=== PATIENT | female | born 1995 | race Two or more races ===

== ENCOUNTER 2020-01-12 09:00 | Observation (INO) | payer MEDICAID, OTHER | END 2020-01-12 10:45 | disposition home or self-care (01) | DRG 566 | LOC: LDRP 09:00 | PROVIDERS: ADMIT Obstetrics & Gynecology; ATTEND Obstetrics & Gynecology | DX: O48.0 Post-term pregnancy (principal); Z3A.40 40 weeks gestation of pregnancy | CPT/HCPCS: 59025; 76818; 81002; G0378 ==

== ENCOUNTER 2020-01-14 18:35 | Observation (INO) | payer MEDICAID ==
[~2020-01-14] VITALS: Ht 160 cm; Wt 68.0 kg
[2020-01-14] MEDS ORDERED: PREN-153 OR (19:03)
== END 2020-01-14 20:10 | disposition home or self-care (01) | DRG 566 ==
LOC: LDRP 18:35
PROVIDERS: ADMIT Obstetrics & Gynecology; ATTEND Obstetrics & Gynecology
DX: O48.0 Post-term pregnancy (principal); Z3A.40 40 weeks gestation of pregnancy
CPT/HCPCS: 59025; 76818; 81002; G0378

== ENCOUNTER 2020-01-16 11:45 | Observation (INO) | payer MEDICAID ==
[~2020-01-16 11:45] MED LIST: PREN-153 OR
== END 2020-01-16 13:02 | disposition home or self-care (01) | DRG 566 ==
LOC: LDRP 11:45
PROVIDERS: ADMIT Specialist; ATTEND Specialist
DX: O48.0 Post-term pregnancy (principal); Z3A.40 40 weeks gestation of pregnancy
CPT/HCPCS: 59025; 76818; 81002; G0378

== ENCOUNTER 2020-01-18 09:20 | Inpatient (IN) | payer MEDICAID ==
[~2020-01-18] VITALS: Ht 30.5 cm; Wt 0.5 kg
[2020-01-18] MEDS ORDERED: LACTATED RINGER'S 1,000 ML IV SCH (15:35)
[2020-01-18] MEDS ORDERED: LACT. RINGERS/OXYTOCIN 20UNITS 1,000 ML IV SCH ×2 (15:35→18:05)
[2020-01-18] MEDS ORDERED: LIDOCAINE 2%HCL (LOCAL ANESTH.) INJ 20ML MDV ID ONE (15:45)
[2020-01-18] MEDS ORDERED: DERMOPLAST 60ML BOTTLE TOP PRN (15:45)
[2020-01-18] MEDS ORDERED: PENICILLIN G POT 5MIL/D5 50ML 50 ML IV ONE (15:45)
[2020-01-18] MEDS ORDERED: PHISODERM TOP SOLN 240ML BTL TOP PRN (15:45)
[2020-01-18] MEDS ORDERED: WITCH HAZEL-GLYCERIN PAD TOP PRN (15:45)
[2020-01-18 16:23] LABS: Basophils # (auto) 0 10 ^3/uL (0-0.2); Basophils % (auto) 0.4 % (0.0-2.0); Eosinophils # (auto) 0 10 ^3/uL (0-0.8); Eosinophils % (auto) 0.3 % (0.0-7.0); Hematocrit 41.8 % (36.0-46.0); Lymphocytes # (auto) 1.3 10 ^3/uL (0.4-5.4); Lymphocytes % (auto) 10.5 % (10.0-50.0); Mean Corpuscular Hemoglobin 30.3 pg (28.0-32.0); Mean Corpuscular Hgb Conc. 33.5 g/dL (32.0-36.0); Mean Corpuscular Volume 90.6 fL (80.0-100.0); Monocytes # (auto) 0.7 10 ^3/uL (0-1.3); Monocytes % (auto) 5.5 % (0.0-12.0); Neutrophils % (auto) 83.3 % (37.0-80.0); Nucleated Red Blood Cells % 0.1 %; Platelet Count (auto) 209 10^3/uL (140-450); Red Blood Cells 4.62 10^6/uL (4.0-5.20); Red Cell Distribution Width 14.1 % (11.8-14.3); White Blood Cell 12.1 10^3/uL (4.4-10.8)
[2020-01-18] MEDS ORDERED: BUTORPHANOL TARTRATE 2 MG/1 ML VIAL IV PRN (16:30)
[2020-01-18 16:39] LABS: Albumin 2.6 g/dL (3.4-5.0); BUN/Creatinine Ratio 11.8; Calcium 8.4 mg/dL (8.5-10.1); Potassium 3.4 mmol/L (3.5-5.1)
[2020-01-18 16:42] LABS: Bilirubin, Total 0.3 mg/dL (0.2-1.0); Total Protein 7.2 g/dL (6.4-8.2)
[2020-01-18] MEDS ORDERED: LACT. RINGERS/OXYTOCIN 20UNITS 500 ML IV ONE (17:05)
[2020-01-18] MEDS ORDERED: IBUPROFEN 600 MG TAB PO PRN (17:15)
[2020-01-18] MEDS ORDERED: ACETAMINOPHEN 325 MG TAB PO PRN (17:15)
[2020-01-18 17:43] LABS: Partial Thromboplastin Time 29.2 sec (23.64-32.05)
[2020-01-18 19:13] VITALS: BP 109/67
[2020-01-18] MEDS ORDERED: PENICILLIN G POTASSIUM 2,500,000 UNITS in D5W 5% 50 ML IV SCH (19:45)
[2020-01-18] MEDS: IBUPROFEN 600 MG TAB PO PRN (19:45)
[2020-01-18 23:04] VITALS: BP 120/69
[2020-01-19] MEDS: IBUPROFEN 600 MG TAB PO PRN (02:17)
[2020-01-19 02:45] VITALS: BP 110/67
[2020-01-19 07:05] VITALS: BP 116/62
[2020-01-19 11:00] VITALS: BP 111/69
[2020-01-19 15:00] VITALS: BP 106/67
[2020-01-19] MEDS ORDERED: TETANUS-DIPTH-ACEL PERTUSSIS 0.5ML SYR Tdap IM ONE (18:15)
[2020-01-19 18:30] VITALS: BP 105/72
[2020-01-20 05:09] LABS: RPR Non Reactive (Non Reactive)
== END 2020-01-19 19:35 | disposition home or self-care (01) | DRG 560 ==
LOC: UNDOADMOB 09:20 → LDRP 09:20 → INTOOBSV 15:15 → OBSVTOIN 15:15 → LDRP 15:51
PROVIDERS: ADMIT Specialist; ATTEND Specialist
PROC: 10E0XZZ Delivery of Products of Conception, External Approach (ICD-10-PCS; principal; 2020-01-18)
PROC: 0HQ9XZZ Repair Perineum Skin, External Approach (ICD-10-PCS; 2020-01-18)
DX: O48.0 Post-term pregnancy (principal); O69.81X0 Labor and delivery complicated by cord around neck, without compression, not applicable or unspecified; O70.0 First degree perineal laceration during delivery; Z37.0 Single live birth; O77.0 Labor and delivery complicated by meconium in amniotic fluid; Z3A.40 40 weeks gestation of pregnancy
CPT/HCPCS: 36415; 59025; 59409; 76818; 80053; 81002; 84112; 85025; 85610; 85730; 86592; 86850; 86900; 86901; 90472; 90715; G0378; J2590; J7060

== ENCOUNTER 2021-09-17 13:10 | Inpatient (IN) | payer MEDICAID ==
[~2021-09-17] VITALS: Ht 160 cm; Wt 64.9 kg
[~2021-09-17 13:10] MED LIST changes: -PREN-153 OR; +PREN1TAB71 OR
[2021-09-17] MEDS ORDERED: LACTATED RINGER'S 1,000 ML IV ONE (14:45)
[2021-09-17] MEDS ORDERED: PROMETHAZINE HCL 25 MG/ML 1ML IV PRN (16:00)
[2021-09-17] MEDS ORDERED: PENICILLIN G POT 5MIL/D5 50ML 50 ML IV ONE (16:00)
[2021-09-17] MEDS ORDERED: LACT. RINGERS/OXYTOCIN 20UNITS 0 ML IV ONE (16:00)
[2021-09-17] MEDS ORDERED: PENICILLIN G POT 5MIL/D5 50ML 0 ML IV ONE (16:00)
[2021-09-17] MEDS ORDERED: BUTORPHANOL TARTRATE 2 MG/1 ML VIAL IV PRN ×2 (16:00)
[2021-09-17] MEDS ORDERED: LACT. RINGERS/OXYTOCIN 20UNITS 500 ML IV ONE ×2 (16:00→16:30)
[2021-09-17] MEDS ORDERED: LIDOCAINE 2%HCL (LOCAL ANESTH.) INJ 20ML MDV IJ PRN (16:00)
[2021-09-17] MEDS: LACTATED RINGER'S 1,000 ML IV SCH (16:10)
[2021-09-17] MEDS ORDERED: METHYLERGONOVINE MALEATE 0.2 MG/ML AMP IM PRN (16:15)
[2021-09-17] MEDS ORDERED: CARBOPROST TROMETHAMINE 250 MCG/1ML VIAL IM PRN (16:15)
[2021-09-17] MEDS ORDERED: miSOPROStol 100 mcg TAB PR PRN (16:15)
[2021-09-17] MEDS ORDERED: ONDANSETRON HCL 4 MG/2 ML VIAL IV PRN (16:15)
[2021-09-17] MEDS ORDERED: miSOPROStol 100 mcg TAB SL PRN (16:15)
[2021-09-17] MEDS: WITCH HAZEL-GLYCERIN PAD TOP PRN (16:21)
[2021-09-17] MEDS: DERMOPLAST 60ML BOTTLE TOP PRN (16:21)
[2021-09-17] MEDS: PHISODERM TOP SOLN 240ML BTL TOP PRN (16:21)
[2021-09-17 16:33] LABS: Basophils # (auto) 0 10 ^3/uL (0-0.2); Basophils % (auto) 0.4 % (0.0-2.0); Eosinophils # (auto) 0 10 ^3/uL (0-0.8); Eosinophils % (auto) 0.3 % (0.0-7.0); Hematocrit 40.9 % (36.0-46.0); Lymphocytes # (auto) 1.2 10 ^3/uL (0.4-5.4); Lymphocytes % (auto) 13.2 % (10.0-50.0); Mean Corpuscular Hemoglobin 30.7 pg (28.0-32.0); Mean Corpuscular Hgb Conc. 34.3 g/dL (32.0-36.0); Mean Corpuscular Volume 89.5 fL (80.0-100.0); Monocytes # (auto) 0.7 10 ^3/uL (0-1.3); Monocytes % (auto) 7.6 % (0.0-12.0); Neutrophils # (auto) 7.1 10 ^3/uL (1.6-8.6); Neutrophils % (auto) 78.5 % (37.0-80.0); Nucleated Red Blood Cells % 0.1 %; Red Blood Cells 4.57 10^6/uL (4.0-5.20); Red Cell Distribution Width 13.9 % (11.8-14.3)
[2021-09-17 16:50] LABS: Albumin 2.8 g/dL (3.4-5.0); Calcium 8.8 mg/dL (8.5-10.1); Potassium 3.2 mmol/L (3.5-5.1)
[2021-09-17 16:53] LABS: BUN/Creatinine Ratio 10.9; Bilirubin, Total 0.3 mg/dL (0.2-1.0); Total Protein 6.9 g/dL (6.4-8.2)
[2021-09-17] MEDS ORDERED: ePHEDrine SULFATE 50 MG/ML AMP ONE (16:55)
[2021-09-17] MEDS ORDERED: ROPIVACAINE HCL 0 ML ONE (16:56)
[2021-09-17] MEDS ORDERED: ePHEDrine SULFATE 50 MG/ML AMP IV ONE (17:00)
[2021-09-17] MEDS ORDERED: NALOXONE HCL 0.4 MG/ML VIAL IV ONE (17:00)
[2021-09-17] MEDS ORDERED: ROPIVACAINE HCL 200 ML EPI SCH (17:00)
[2021-09-17 17:20] LABS: INR 1.04 (0.9-1.15); Partial Thromboplastin Time 29.7 sec (23.6-33.0)
[2021-09-17] MEDS ORDERED: ACETAMINOPHEN 325 MG TAB PO PRN (18:15)
[2021-09-17] MEDS ORDERED: IBUPROFEN 800 MG TAB PO ONE (18:15)
[2021-09-17] MEDS ORDERED: ONDANSETRON ODT 4 MG TAB PO PRN (18:15)
[2021-09-17 18:35] VITALS: BP 103/64
[2021-09-17] MEDS ORDERED: PENICILLIN G POTASSIUM 2,500,000 UNITS in D5W 5% 50 ML IV SCH (20:00)
[2021-09-17] MEDS ORDERED: DIPHENOXYLATE W/ATROPINE 2.5 MG TAB PO SCH (22:00)
[2021-09-17 22:45] VITALS: BP 94/52
[2021-09-18] MEDS ORDERED: IBUPROFEN 600 MG TAB PO PRN
[2021-09-18 03:00] VITALS: BP 101/50
[2021-09-18] MEDS: LACTATED RINGER'S 1,000 ML IV SCH ×3 (05:16→13:37)
[2021-09-18] MEDS: DERMOPLAST 60ML BOTTLE TOP PRN (06:58)
[2021-09-18] MEDS: WITCH HAZEL-GLYCERIN PAD TOP PRN (06:58)
[2021-09-18] MEDS: PHISODERM TOP SOLN 240ML BTL TOP PRN (06:59)
[2021-09-18 07:11] VITALS: BP 92/57
[2021-09-18 10:54] VITALS: BP 99/57
[2021-09-18 15:00] VITALS: BP 97/56
[2021-09-18] MEDS ORDERED: POTASSIUM CHL 20 Meq TABLET PO ONE (15:00)
[2021-09-18 18:30] VITALS: BP 94/57
[2021-09-19] MEDS ORDERED: IBUP600T27 PO (00:28)
[2021-09-19 06:06] LABS: RPR Non Reactive (Non Reactive)
== END 2021-09-18 19:14 | disposition home or self-care (01) | DRG 560 ==
LOC: LDRP 13:10 → OBSVTOIN 15:55 → LDRP 18:04
PROVIDERS: ADMIT Obstetrics & Gynecology; ATTEND Obstetrics & Gynecology
PROC: 10E0XZZ Delivery of Products of Conception, External Approach (ICD-10-PCS; principal; 2021-09-17)
DX: O80 Encounter for full-term uncomplicated delivery (principal); Z37.0 Single live birth; Z20.822 Contact with and (suspected) exposure to COVID-19; Z3A.38 38 weeks gestation of pregnancy
CPT/HCPCS: 36415; 59025; 59409; 76818; 80053; 81002; 85025; 85610; 85730; 86592; 86850; 86900; 86901; 87426; 94760; 96360; 96361; 96365; 96366; G0378; J2540; J2590; J7060